=== PATIENT | female | born 2000 | race African-American/Black ===

== ENCOUNTER 2019-04-20 21:54 | Emergency (ER) | payer OTHER ==
--- NOTE | 2019-04-20 22:01 | PDOC ---
Rapid Medical Evaluation Time Seen by Provider: 04/20/19 21:57 Medical Evaluation: Allergies Allergy/AdvReac Type Severity Reaction Status Date / Time No Known Allergies Allergy Verified 04/20/19 21:57 04/20/19 21:58 Pt presents to the ER today for abdominal pain s/p falling up a ramp. She landed on her stomach. Pt is currently 4 months . . LMP 12/06/18. Denies vaginal bleeding. Exam: TTP of the RUQ, RLQ, suprapubic and LLQ. Orders: Labs, US Pt to proceed to the ER for further evaluation Discharge Disposition - Diagnosis Abdominal pain affecting - Referrals - Patient Instructions - Post Discharge Activity
[2019-04-20 22:02] VITALS: BP 113/68; PULSE 90; TEMP 98.7; BMI 19.7
--- NOTE | 2019-04-20 23:34 | PDOC ---
Attending Attestation - Resident Resident Name: Td Cortes - ED Attending Attestation I have performed the following: I have examined & evaluated the patient, The case was reviewed & discussed with the resident, I agree w/resident's findings & plan - HPI HPI: 04/21/19 00:36 Pt comes with slip and fall and she wants to make sure that her is ok. Pt has never been here and we have no blood tests on her. We will get baseline bloods. - Physicial Exam PE: 04/21/19 00:37 Agree with resident exam - Medical Decision Making 04/21/19 00:35 Hb/HCT normal range; INR normal Patient Name: SOWMYA JIMENEZ THIS IS A PRELIMINARY REPORT FROM [facility] DATE OF SERVICE: 2019-04-20 23:41:08 IMAGES: 26 EXAM: OB Ultrasound >/=14 wks single fetus and Duplex scan pelvis, complete Single live intrauterine Gestational age 15 weeks 6 day(s) heart rate 146 bpm Closed cervix 3.7 cm long Vertex presentation Posterior placenta No ovarian torsion bilaterally. Color flow with appropriate arterial and/or venous waveforms. Pt will be discharged home.
--- NOTE | 2019-04-20 23:35 | PDOC ---
History of Present Illness - General Chief Complaint: Pain Stated Complaint: 16 WKS /FALL Time Seen by Provider: 04/20/19 21:57 History Source: Patient Exam Limitations: No Limitations - History of Present Illness Initial Comments: 04/20/19 23:32 18F w/ no PMH who presents to the ER after falling on her R side. Pt states she was walking on the sidewalk, tripped, and fell sideways on her R side. Denies abd pain, cramping, vaginal bleeding, dysuria, hematuria, nausea, vomiting, LOC. Past History - Past Medical History Allergies/Adverse Reactions: Allergies Allergy/AdvReac Type Severity Reaction Status Date / Time No Known Allergies Allergy Verified 04/20/19 21:57 Home Medications: Ambulatory Orders NK [No Known Home Medication] 04/20/19 COPD: No - Psycho Social/Smoking Cessation Hx Smoking History: Never smoked Have you smoked in the past 12 months: No Hx Alcohol Use: No Drug/Substance Use Hx: No Review of Systems - Review of Systems Able to Perform ROS?: Yes Is the patient limited Mexican proficient: No Constitutional: No: Chills, Fever HEENTM: No: Eye Pain, Blurred Vision, Ear Pain, Throat Pain Respiratory: No: Orthopnea, Shortness of Breath Cardiac (ROS): No: Chest Pain, Lightheadedness, Palpitations, Syncope ABD/GI: No: Nausea, Vomiting, Abdominal cramping : No: Burning, Dysuria, Discharge, Hematuria, Other (Vaginal bleeding) Neurological: No: Headache, Numbness, Tremors, Weakness *Physical Exam - Vital Signs Last Vital Signs Temp Pulse Resp BP Pulse Ox 98.7 F 90 18 113/68 100 04/20/19 21:57 04/20/19 21:57 04/20/19 21:57 04/20/19 21:57 04/20/19 21:57 - Physical Exam General Appearance: Yes: Nourished, Appropriately Dressed. No: Apparent Distress HEENT: positive: Normal Voice, Hearing Grossly Normal Respiratory/Chest: positive: Lungs Clear, Normal Breath Sounds. negative: Chest Tender Cardiovascular: positive: Regular Rhythm, Regular Rate, S1, S2. negative: Diastolic Murmur, Systolic Murmur Gastrointestinal/Abdominal: positive: Tender (Mild TTP in suprapubic abd), Flat , Soft, Other (Slightly gravid abdomen) Musculoskeletal: positive: Other (No midline spine tenderness including c-spine) . negative: CVA Tenderness, CVA Tenderness (R), CVA Tenderness (L) Extremity: positive: Normal Range of Motion. negative: Tender Integumentary: positive: Dry, Warm Neurologic: positive: paper feeder II-XII NML intact, Fully Oriented, Alert, Normal Mood/ Affect, Normal Response, Motor Strength 09/26 ED Treatment Course - LABORATORY CBC & Chemistry Diagram: 04/20/19 23:55 04/20/19 23:55 Medical Decision Making - Medical Decision Making 04/20/19 23:43 18F with no PMH who presents after having a fall on her R side. PE remarkably for mild tenderness in suprapubic abdomen. Labs and US ordered. Pt has no active complaints now. 04/21/19 00:35 Labs and US WNL. Will d/c with PCP and [facility] f/u. Discharge - Discharge Information Problems reviewed: Yes Clinical Impression/Diagnosis: Abdominal pain affecting Condition: Stable Disposition: HOME - Admission No - Follow up/Referral - Patient Discharge Instructions Patient Printed Discharge Instructions: Ultrasound Exams During Additional Instructions: Your ER visit is not complete until your follow up with your primary care physician and [facility]. Please follow up with your primary care physician and OB/ [facility] in 1-2 days. Please return to the ER if you have any signs or symptoms of chest pain, shortness of breath, uncontrollable fever, chills, nausea, vomiting, numbness, tingling, or weakness in any part of your body, changes in vision, or slurred speech. Please return to the ER if symptoms persist, worsen, or new symptoms arise. - Post Discharge Activity
[2019-04-20 23:55] LABS: PH,URINE 6.5 (5.0-8.0); URINE APPEARANCE CLOUDY; URINE BILIRUBIN NEGATIVE (NEGATIVE); URINE COLOR YELLOW; URINE GLUCOSE (UA) NEGATIVE (NEGATIVE); URINE KETONE NEGATIVE (NEGATIVE); URINE LEUK ESTERASE NEGATIVE (NEGATIVE); URINE NITRITE NEGATIVE (NEGATIVE); URINE PROTEIN NEGATIVE (NEGATIVE); URINE UROBILINOGEN 0.2 mg/dL (0.2-1.0)
[2019-04-21 00:19] LABS: BASO % 0.9 % (0-2.0); EOS % 0.6 % (0-4.5); HEMATOCRIT 33.4 % (32.4-45.2); HEMOGLOBIN 11.2 GM/dL (10.7-15.3); LYMPH % 33.8 % (8-40); MCHC 33.7 g/dl (32.0-36.0); MEAN CELL VOLUME 88.9 fl (80-96); MEAN PLT VOLUME 7.3 fl (7.5-11.1); MONO % 6.9 % (3.8-10.2); NEUT % 57.8 % (42.8-82.8); PLATELET COUNT 308 K/MM3 (134-434); RBC 3.75 M/mm3 (3.60-5.2); RDW 14.2 % (11.6-15.6); WHITE BLOOD COUNT 8.3 K/mm3 (4.0-10.0)
[2019-04-21 00:32] LABS: INR 1.02 (0.83-1.09)
[2019-04-21 00:43] LABS: ALBUMIN 3.2 g/dl (3.4-5.0); BILIRUBIN,TOTAL 0.2 mg/dL (0.2-1); BLOOD UREA NITROGEN 9.5 mg/dL (7-18); CREATININE 0.5 mg/dL (0.55-1.3); POTASSIUM 3.9 mmol/L (3.5-5.1); TOT PROT 6.4 g/dl (6.4-8.2)
== END 2019-04-21 00:46 | disposition home or self-care (01) ==
LOC: JER 21:54
DX: O26.892 Other specified pregnancy related conditions, second trimester (principal); Z3A.16 16 weeks gestation of pregnancy; W18.39XA Other fall on same level, initial encounter; Y93.89 Activity, other specified; Y92.410 Unspecified street and highway as the place of occurrence of the external cause
CPT/HCPCS: 36415; 76801-TC; 80053; 81003; 84702; 85025; 85610; 86850; 86900; 86901; 99282-25